=== PATIENT | female | born 1970 | race Native Hawaiian/Other Pacific Islander ===

== ENCOUNTER 2017-01-04 14:10 | Outpatient (CLI) | payer BC | END 2017-01-04 15:30 | disposition home or self-care (01) | LOC: MAMMO 14:10 | DX: N60.12 Diffuse cystic mastopathy of left breast (principal) | CPT/HCPCS: G0204-TC ==

== ENCOUNTER 2018-03-15 15:55 | Outpatient (CLI) | payer BC | END 2018-03-15 21:26 | disposition home or self-care (01) | LOC: MAMMO 15:55 | DX: Z12.31 Encounter for screening mammogram for malignant neoplasm of breast (principal) ==

== ENCOUNTER 2019-03-27 16:03 | Outpatient (CLI) | payer BC | END 2019-03-27 19:47 | disposition home or self-care (01) | LOC: MAMMO 16:03 | DX: Z12.31 Encounter for screening mammogram for malignant neoplasm of breast (principal) ==

== ENCOUNTER 2020-07-21 08:38 | Outpatient (CLI) | payer BC | END 2020-07-21 19:08 | disposition home or self-care (01) | LOC: MAMMO 08:38 | PROVIDERS: ATTEND Obstetrics & Gynecology | DX: Z12.31 Encounter for screening mammogram for malignant neoplasm of breast (principal) ==

== ENCOUNTER 2021-12-31 09:18 | Outpatient (CLI) | payer BC | END 2021-12-31 19:19 | disposition home or self-care (01) | LOC: MAMMO 09:18 | PROVIDERS: ATTEND Obstetrics & Gynecology | DX: Z12.31 Encounter for screening mammogram for malignant neoplasm of breast (principal) ==

== ENCOUNTER 2023-01-02 09:07 | Outpatient (CLI) | payer BC | END 2023-01-02 19:20 | disposition home or self-care (01) | LOC: MAMMO 09:07 | PROVIDERS: ATTEND Obstetrics & Gynecology | DX: Z12.31 Encounter for screening mammogram for malignant neoplasm of breast (principal) ==